=== PATIENT | female | born 1985 | race Caucasian/White ===

== ENCOUNTER 2020-06-25 16:43 | Inpatient (IN) | payer BC ==
[~2020-06-25] VITALS: Ht 160 cm; Wt 74.8 kg
[2020-06-25 17:52] LABS: HEMOGLOBIN 12.4 gm/dl (12.3-15.3); RED BLOOD COUNT 3.9 M/UL (4.00-5.10); WHITE BLOOD COUNT 10.3 K/UL (4.5-11.0)
[2020-06-25] MEDS ORDERED: PRENATAL VITAM1 EAC5 PO (18:06)
[2020-06-25] MEDS ORDERED: VITAMIN A2400 MCG PO (18:11)
[2020-06-25] MEDS ORDERED: VITAMIN C500 M4 PO (18:12)
[2020-06-25] MEDS ORDERED: VITAMIN B COMP1 EACH PO (18:14)
[2020-06-25] MEDS ORDERED: VITAMIN D 40400 UNIT PO (18:15)
[2020-06-25] MEDS ORDERED: ZINC50 M2 PO (18:16)
[2020-06-25] MEDS ORDERED: IRON CHEWS15 MG PO (18:20)
[2020-06-25] MEDS ORDERED: DOCUSATE SODIU250 MG PO (18:32)
[2020-06-25] MEDS ORDERED: HYDROCODONE-AC1 EACH PO (18:32)
[2020-06-25] MEDS ORDERED: IBUPROFEN600 MG PO (18:32)
[2020-06-27 06:18] LABS: HEMOGLOBIN 12.1 gm/dl (12.3-15.3)
== END 2020-06-27 16:12 | disposition home or self-care (01) | DRG 807 ==
LOC: GENOP 16:43 → OB 17:18
PROVIDERS: Obstetrics & Gynecology; ADMIT Obstetrics & Gynecology
PROC: 0U7C7ZZ Dilation of Cervix, Via Natural or Artificial Opening (ICD-10-PCS; principal; 2020-06-25)
PROC: 10E0XZZ Delivery of Products of Conception, External Approach (ICD-10-PCS; 2020-06-25)
PROC: 10907ZC Drainage of Amniotic Fluid, Therapeutic from Products of Conception, Via Natural or Artificial Opening (ICD-10-PCS; 2020-06-25)
PROC: 10H07YZ Insertion of Other Device into Products of Conception, Via Natural or Artificial Opening (ICD-10-PCS; 2020-06-25)
PROC: 4A1HXCZ Monitoring of Products of Conception, Cardiac Rate, External Approach (ICD-10-PCS; 2020-06-25)
PROC: 4A1HXFZ Monitoring of Products of Conception, Cardiac Rhythm, External Approach (ICD-10-PCS; 2020-06-25)
PROC: 0UQMXZZ Repair Vulva, External Approach (ICD-10-PCS; 2020-06-25)
DX: O99.824 Streptococcus B carrier state complicating childbirth (principal); Z37.0 Single live birth; Z3A.39 39 weeks gestation of pregnancy; O71.82 Other specified trauma to perineum and vulva; O69.81X0 Labor and delivery complicated by cord around neck, without compression, not applicable or unspecified
CPT/HCPCS: 36415; 51702; 81001; 82800; 85014; 85018; 85025; J2795